=== PATIENT | male | born 1985 | race Caucasian/White ===

== ENCOUNTER 2018-03-04 19:44 | Observation (INO) ==
[2018-03-04] MEDS ORDERED: *HR* FentaNYL (PF) 100 MCG/2 ML VIAL IVP ONE ×3 (19:48→23:37)
[2018-03-04] MEDS ORDERED: *HR* OxyCODONE/APAP 5/325 TABLET PO ONE (19:48)
[2018-03-04] MEDS ORDERED: Tdap (Boostrix) Vaccine 0.5 ML SYRINGE IM ONE (19:49)
--- NOTE | 2018-03-04 20:23 | Emergency Department Note ---
Disposition Clinical Impression: Laceration of right lower leg Qualifiers: Encounter type: initial encounter Qualified Code(s): S81.811A - Laceration without foreign body, right lower leg, initial encounter Disposition: Home, Self-Care Condition: Good General Adult HPI - General Chief complaint: ED Wound/Laceration Stated complaint: finger/ankle injury Time Seen by Provider: 03/04/18 19:45 Source: patient, EMS Limitations: no limitations Nursing Notes Reviewed: Yes Vital Signs Reviewed: Yes - History of Present Illness HPI Narrative: This is a 32 year-old male with history of Suboxone use who presented via EMS a leg injury. 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 He dropped the tool, lacerating his right anterior sales. EMS controlled bleeding with direct pressure. They gave Versed 10 mg en route for pain and anxiety; they are out of analgesics. Patient presents with pain at the laceration site. He was able to ambulate after the injury. This is an apparent isolated injury. 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 Location: lower extremity Radiation: non-radiation Pain Severity: severe Pain Scale: 10 Quality: sharp Consistency: constant Improves with: nothing Worsens with: movement Associated symptoms: Reports: denies other symptoms - Related Data Home Medications Medication Instructions Recorded Confirmed Suboxone 2 mg-0.5 mg Sl Film 02/08/16 Previous Rx's Medication Instructions Recorded Mupirocin [Bactroban Oint] 1 appl TP BID #1 tube 02/08/16 cephALEXin [Keflex] 500 mg PO QID #40 capsule 02/08/16 Allergies Allergy/AdvReac Type Severity Reaction Status Date / Time No Known Allergies Allergy Verified 02/08/16 17:02 All systems ED: reviewed and negative except as stated. Integumentary: Reports: as per HPI Neurological: Denies: weakness, numbness, abnormal gait Past Medical History - Past Medical History Medical history: Reports: non-contributory Psychiatric history: Reports: anxiety - Social History Smoking Status: Current every day smoker Smokeless Tobacco Status: No Alcohol use: Reports: unknown Drug use: Reports: other Physical Exam - General Limitations: no limitations General appearance: alert, anxious - Head Head exam: atraumatic, normocephalic - Expanded Lower Extremity Exam Knee exam: Present: normal inspection, full ROM. Absent: tenderness, swelling Lower leg exam: Present: tenderness, laceration (6 cm laceration tranversely through right anteiror mid-sales, through fascia) Ankle exam: Present: normal inspection, full ROM. Absent: tenderness, swelling Foot/toe exam: Present: normal inspection, full ROM. Absent: tenderness, swelling, laceration, deformity Neurovascular/Tendon exam: Present: normal capillary refill, normal 2-point discrimination, normal fine/light touch, significant pain with passive ROM of distal joint, other (dorsiflexion and inversion of the foot, extension of all toes intact). Absent: motor deficit, sensory deficit, tendon deficit, foot drop Gait: antalgic - Neurological Exam Neurological exam: Present: alert, oriented X3. Absent: motor sensory deficit Course - Reevaluation(s) Reevaluation #1: Patient's nurse irrigated and dressed the wound. Patient has received multiple doses of analgesics, unfortunately, with only partial relief of pain. Time: 23:30 - Consultations Consultation #1: Dr. Donahue discussed the case with Dr. Yancey, who elected to admit patient and repair the laceration in the OR. Time: 23:30 Vital Signs Temperature 98.4 F 03/04/18 19:45 Pulse Rate 96 03/04/18 19:45 Respiratory Rate 22 03/04/18 19:45 Blood Pressure 136/98 03/04/18 19:45 O2 Sat by Pulse Oximetry 98 03/04/18 19:45 Temperature 98.8 F 03/05/18 00:44 Pulse Rate 69 03/05/18 00:44 Respiratory Rate 15 03/05/18 00:44 Blood Pressure 113/61 03/05/18 00:44 O2 Sat by Pulse Oximetry 94 03/05/18 00:44 Oxygen Delivery Oxygen Delivery Nasal Cannula Medical Decision Making - Lab Data Result diagrams: 03/05/18 00:52 - Radiology Data Radiology results reviewed: Yes I reviewed the patient's radiology results. XR/XR tibia fibula RT IMPRESSION: Anterior soft tissue injury/laceration with no evidence of an acute fracture or radiopaque foreign body.
[2018-03-04] MEDS ORDERED: ceFAZolin 2,000 MG in Water for inj. (sterile) 20 ML IVP ONE (20:47)
[2018-03-04] MEDS ORDERED: Ketamine *HR* 12 MG in 0.9 % Sodium Chloride 100 ML IVPB ONE (21:12)
[2018-03-04] MEDS ORDERED: Lidocaine/EPI 1:100k 1% 30 ML VIAL INFILT ONE (22:44)
[2018-03-04] MEDS ORDERED: Acetaminophen 325 MG TABLET PO PRN (23:17)
[2018-03-04] MEDS ORDERED: Naloxone 0.4 MG/ML INJ IVP PRN (23:17)
[2018-03-04] MEDS ORDERED: *HR* HYDROcodone/Acet 5/325 mg TABLET PO PRN (23:17)
[2018-03-04] MEDS ORDERED: *HR* OxyCODONE Immed Rel 5 MG TABLET PO PRN (23:17)
[2018-03-04] MEDS ORDERED: Ringers Solution, Lactated 1,000 ML IVC SCH (23:30)
[2018-03-04] MEDS ORDERED: ceFAZolin 2,000 MG in Water for inj. (sterile) 20 ML IVP SCH (23:45)
[2018-03-05 01:01] LABS: Hematocrit 37.4 % (37.5-50.1); Hemoglobin 12.8 g/dL (12.9-16.9); Mean Corpuscular HGB Conc 34.2 g/dL (31.6-35.5); Mean Corpuscular Hemoglobin 29.8 pg (28.0-33.3); Mean Corpuscular Volume 87.2 fL (83.0-100.0); Platelet Count 206 K/mcL (140-400); Red Blood Count 4.29 M/mcL (4.19-5.50); Red Cell Distribution Width 13.5 % (11.5-14.5)
[2018-03-05] MEDS ORDERED: Naloxone 0.4 MG/ML INJ IVP PRN ×2 (01:13→09:40)
[2018-03-05] MEDS ORDERED: *HR* OxyCODONE Immed Rel 5 MG TABLET PO PRN ×2 (01:13→09:40)
[2018-03-05] MEDS ORDERED: *HR* HYDROcodone/Acet 5/325 mg TABLET PO PRN ×2 (01:13→09:40)
[2018-03-05] MEDS ORDERED: Ringers Solution, Lactated 1,000 ML IVC SCH ×4 (01:13→09:40)
[2018-03-05] MEDS ORDERED: Acetaminophen 325 MG TABLET PO PRN ×2 (01:13→09:40)
[2018-03-05 02:23] LABS: BUN/Creatinine Ratio 13 (6-26); Blood Urea Nitrogen 12 mg/dL (6-20); Calcium 8.9 mg/dL (8.6-10.3); Carbon Dioxide 27 mEq/L (23-29); Chloride 108 mEq/L (98-107); Glucose 101 mg/dL (70-105); Osmolality,Calculated 290 (280-300); Potassium 4.3 mEq/L (3.5-5.1); Sodium 140 mEq/L (136-145); eGFR For African Americans > 60 (> 60); eGFR For Non-African Americans > 60 (> 60)
--- NOTE | 2018-03-05 06:08 | Orthopedic History & Physical ---
Date of Encounter: 03/05/18 Time of Encounter: 06:05 Assessment and Plan (1) Laceration of right lower leg Current visit: Yes Status: Acute I did discuss the diagnosis in detail with the patient. He has a right leg laceration as described. He is neurovascularly intact and therefore the wound is likely just superficial. Given his pain level he will not tolerate bedside closure. We will plan on operative debridement, irrigation, and primary wound closure in the operating room. The risks discussed included but were not limited to stiffness, bleeding, infection, blood clots, damage to neurovascular structures, tendons, ligaments, and bone. Also discussed was the risk of continued symptoms and possible need for further procedures. I did discuss the anesthesia risks including stroke, heart attack, and . I did discuss the reasonable, foreseeable postoperative course with the patient. He did wish to proceed and consent was obtained. Qualifiers: Encounter type: initial encounter Qualified Code(s): S81.811A - Laceration without foreign body, right lower leg, initial encounter History of Present Illness HPI: Mr. Dahl is a 32 year old male who sustained an injury to his right leg yesterday while at work. It was caused by an angled hand grinder. A caused a transverse laceration to the anterior sales region, lateral to the tibial crest. He was seen in the emergency department where the emergency department physician was concerned about being able to close it in the OR given the patient 's pain level. He was therefore admitted for operative washout and closure. The patient complains of significant isolated achy and sharp pain to the wound on the right leg. No feelings of illness. He denies any numbness, tingling, or any other associated signs or symptoms or modifying factors. I dressing was placed yesterday on the wound however the patient took it off. Past Med Surg Social Fam HX - Past Medical History Medical history: non-contributory Psychiatric history: anxiety - Past Surgical History Surgical History: no surgical history - Social History Smoking Status: Current every day smoker Packs per day: 2 Smokeless Tobacco Status: No Alcohol use: unknown Drug use: other Medications and Allergies Mupirocin [Bactroban Oint] 1 appl TP BID #1 tube 02/08/16 [Rx] Suboxone 2 mg-0.5 mg Sl Film 02/08/16 [History] cephALEXin [Keflex] 500 mg PO QID #40 capsule 02/08/16 [Rx] 3 Allergy/AdvReac Type Severity Reaction Status Date / Time No Known Allergies Allergy Verified 02/08/16 17:02 All Systems Reviewed: The remainder of the systems were reviewed and are negative Physical Exam - Constitutional Vitals: Temp Pulse Resp BP Pulse Ox 98.8 F 69 15 113/61 94 03/05/18 00:44 03/05/18 00:44 03/05/18 00:44 03/05/18 00:44 03/05/18 00:44 Constitutional -Vitals reviewed -The patient is well developed and well nourished. -Mood is pleasant. -The patient is well groomed. Psychiatric -The patient is fully alert and oriented x 3. Respiratory: -Respiratory effort normal Abdomen: -Soft abdomen -Non tender -Non distended: Left upper extremity: -No deformities. The overlying skin is intact. No obvious signs of acute trauma. -No tenderness to palpation throughout. -No significant pain with passive motion of the shoulder, elbow, wrist, and fingers within the limits of the bed. -Able to make an "OK" sign, cross the index and long fingers, and extend the thumb. -Sensation grossly intact to light touch throughout the median, radial, and ulnar distributions. -Radial pulse is present; Fingers have good capillary refill. Right upper extremity: -No deformities. The overlying skin is intact. No obvious signs of acute trauma. -No tenderness to palpation throughout. -No significant pain with passive motion of the shoulder, elbow, wrist, and fingers within the limits of the bed. -Able to make an "OK" sign, cross the index and long fingers, and extend the thumb. -Sensation grossly intact to light touch throughout the median, radial, and ulnar distributions. -Radial pulse is present; Fingers have good capillary refill. Left lower extremity: -No deformities. The overlying skin is intact. No obvious signs of acute trauma. -No tenderness to palpation throughout. -No pain with passive motion of the hip, knee, ankle, and toes within the limits of the bed. -No pain with axial loading of the thigh. -Able to dorsiflex and plantarflex the ankle and toes. -Sensation is grossly intact to light touch throughout the sural, saphenous, superficial peroneal, and deep peroneal distributions. -Toes have good capillary refill. Right lower extremity: -There is a 4 cm transverse laceration at the junction between the middle and distal thirds of the sales region. -I am not able to explore deeper given his pain -All compartments are soft and compressible. -No pain with passive motion of the hip, knee, ankle, and toes within the limits of the bed. -No pain with axial loading of the thigh. -Able to dorsiflex and plantarflex the ankle and toes. -Sensation is grossly intact to light touch throughout the sural, saphenous, superficial peroneal, and deep peroneal distributions. -Toes have good capillary refill. Diagnostic Imaging: I did personally review and interpret x-rays of the right tibia show no apparent fractures though there is a shadow on the anterior tibial region which could be an injury from the hand grinder. Results - Labs Result Diagrams: 03/05/18 00:52 03/05/18 00:52 Labs: Abnormal lab results WBC 12.3 K/mcL (4.3-11.1) H 03/05/18 00:52 Hgb 12.8 g/dL (12.9-16.9) L 03/05/18 00:52 Hct 37.4 % (37.5-50.1) L 03/05/18 00:52 Chloride 108 mEq/L (98-107) H 03/05/18 00:52 H & H 03/05/18 Range/Units 00:52 Hgb 12.8 L (12.9-16.9) g/dL Hct 37.4 L (37.5-50.1) % All other labs normal.
--- NOTE | 2018-03-05 06:21 | Anesthesia Evaluation PreOp ---
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 HX Other Medical History: Denies Any Significant HX Anesthesia History: No Prior Anesthetic Complications Alcohol Use: unknown Drug use: prescription drug abuse (on suboxone) Medications and Allergies Mupirocin [Bactroban Oint] 1 appl TP BID #1 tube 02/08/16 [Rx] Suboxone 2 mg-0.5 mg Sl Film 02/08/16 [History] cephALEXin [Keflex] 500 mg PO QID #40 capsule 02/08/16 [Rx] 3 Allergy/AdvReac Type Severity Reaction Status Date / Time No Known Allergies Allergy Verified 02/08/16 17:02 - Meds/Allergy Pre-op Review Medications Reviewed: Yes Allergies Reviewed: Yes Beta Blockers on Current Med List: No Anesthesia Results - Labs 03/05/18 00:52 03/05/18 00:52 Anesthesia Exam O2 Sat Height 1.71 m Height 1.7 m Weight 66.5 kg Weight 62.142 kg O2 Sat by Pulse Oximetry 94 O2 Sat by Pulse Oximetry 99 O2 Sat by Pulse Oximetry 98 Vital Signs Temp Pulse Resp BP Pulse Ox 98.4 F 96 22 136/98 98 03/04/18 19:45 03/04/18 19:45 03/04/18 19:45 03/04/18 19:45 03/04/18 19:45 NPO (# of Hours): > 8 hrs Pain Scale: 0 Pain Scale Used: Numeric (1 - 10) - HEENT Pupil (Motor): Pupils equal, EOMI Mallampati: III Teeth: Normal Oral Opening: Greater than 3 - 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
[2018-03-05] MEDS ORDERED: *HR* Propofol 200 MG/20 ML VIAL IVP ONE (06:26)
[2018-03-05] MEDS ORDERED: Lidocaine -MPF 2% 2 ML VIAL ONE (06:32)
[2018-03-05] MEDS ORDERED: Ondansetron 4 MG/2 ML VIAL ONE (06:32)
[2018-03-05] MEDS ORDERED: *HR* Succinylcholine 200 MG/10 ML VIAL IVP ONE (06:32)
[2018-03-05] MEDS ORDERED: Bupivacaine/EPI 1:200k 0.5%PF 10 ML VIAL ONE (06:40)
[2018-03-05] MEDS ORDERED: Albuterol 2.5 MG/3 ML NEBULIZER ONE (06:41)
[2018-03-05] MEDS ORDERED: CeFAZolin Syringe 2,000MG/20 ML SYR IVPB ONE ×2 (06:47→09:40)
[2018-03-05] MEDS ORDERED: Albuterol 2.5 MG/3 ML NEBULIZER IH ONE ×2 (06:50→09:40)
[2018-03-05] MEDS ORDERED: *HR* FentaNYL (PF) 100 MCG/2 ML VIAL ONE (06:59)
[2018-03-05] MEDS ORDERED: CeFAZolin Syr 2,000MG/20 ML 2,000 MG/20 ML SYRINGE IVPB ONE (07:00)
[2018-03-05] MEDS ORDERED: Acetaminophen IV 1,000 MG/100 ML INFUS..BTL ONE (07:42)
[2018-03-05] MEDS ORDERED: *HR* Meperidine 25 MG/ML SYRINGE ONE (07:48)
[2018-03-05] MEDS: *HR* HYDROmorphone (PF) 1 MG/ML SYRINGE IVP PRN ×3 (08:30→08:41)
[2018-03-05] MEDS ORDERED: *HR* Promethazine 25 MG/ML VIAL ONE (08:34)
--- NOTE | 2018-03-05 08:34 | Orthopedic Operative Note ---
Date of procedure: 03/05/18 Procedure: OPERATIVE REPORT DATE OF PROCEDURE: 03/05/2018 SURGEON: Nito Yancey MD SALES OPERATIONS LEAD(S): There are no assistants PREOPERATIVE DIAGNOSIS: Right leg laceration POSTOPERATIVE DIAGNOSIS: Right leg laceration with complete tibialis anterior laceration and near complete extensor digitorum longus laceration PROCEDURE: Debridement and irrigation of the right leg with repair of the tibialis anterior tendon and extensor digitorum longus tendon ANESTHESIA: Gen. anesthesia PREOPERATIVE ANTIBIOTICS: To grams of Ancef ESTIMATED BLOOD LOSS: 1 milliliters TOURNIQUET TIME: 26 minutes at 300 mmHg LOCAL INJECTION: 0.5% bupivacaine with 1:200,000 epinephrine; 15 mL used in total PREOPERATIVE NOTE AND INDICATIONS: This patient is a 32-year-old male comes in for evaluation of his right leg. He sustained a laceration with an angled grinder brake lining. Recommendation was for exploration with debridement and irrigation and repair of structures as needed. The surgical plan was discussed with the patient. The risks, benefits, alternatives, and potential complications of this procedure were discussed with the patient including injury to veins, arteries, nerves, tendons, ligaments, and bone. Also discussed were the risks of infection, bleeding, pain, blood clots, the possible need for a blood transfusion, the possible need for further procedures, heart attack, stroke, and . Additional risks include infection. All of this was explained in simple terms, and the patient verbalized understanding and wished to proceed. Consent was given to proceed with surgery. PROCEDURE: The patient was seen in the preoperative holding area where the identify and the consent were confirmed. The right leg was marked. Final questions were answered. The patient was brought back to the operating room and placed supine on the operating room table. A huddle was performed with the patient and all vital surgical team members confirming patient identity, the correct procedure, and the correct operative site. Gen. anesthesia was administered. The right lower extremity was prepped and draped in the usual sterile fashion. A surgical time out was performed immediately preceding the incision with all personnel in the operating room to confirm patient identity, the correct operative site and extremity, correct radiographic studies, availability of appropriate surgical equipment, and agreement on the planned procedure. The limb was exsanguinated and tourniquet was inflated. The wound was explored and there is no foreign material. There is noted to be tendon lacerations and therefore the wound was extended proximally and distally on either side. Full- thickness flaps were elevated and the fascia was opened longitudinally. The tibialis anterior tendon had been completely lacerated and the extensor digitorum longus tendon was nearly completely lacerated, about 80%. The extensor pollicis longus was completely intact. The wound was copiously irrigated with 3 L of saline under pulse lavage. The extensor digitorum longus tendon was repaired with 3-0 FiberWire stitches 2 in modified Gonzalez fashion creating 4 core strands. The tibialis anterior was repaired with 3-0 FiberWire stitches 4 in modified Gonzalez fashion creating a core strands. The wound was again copiously irrigated and closed with 3-0 Vicryl stitches followed by sandro. A sterile dressing followed by short leg splint was applied keeping the foot in plantigrade position. The instrument, sponge, and needle counts were correct after wound closure. POST OPERATIVE PLAN: Weight Bearing: Nonweightbearing to the right lower extremity. DVT Prophylaxis: Ambulation Activity: Avoid aggressive activities with right upper extremity. Wound Care: Keep the dressing and splint clean, dry, and intact. Pain Control: [place] Follow Up: Follow-up in 2 weeks for staple removal and placement in a short leg cast. I will continue the cast for a total of 6 weeks followed by motion exercises and therapy. Was there an restaurant assistant present: No Estimated blood loss (cc): 1
[2018-03-05] MEDS: *HR* Promethazine 25 MG/ML VIAL IVP PRN ×2 (08:36→08:45)
--- NOTE | 2018-03-05 09:12 | Anesthesia Evaluation Post Op ---
Date of Encounter: 03/05/18 Time of Encounter: 09:10 Notes: Patient's vital signs have been reviewed. Patient is stable postoperatively and has adequately recovered from anesthesia. Patient is determined to have stable airway patency and respiratory function including respiratory rate and oxygen saturation. Patient has a stable heart rate, blood pressure and adequate hydration. Patients mental status is acceptable. Patients temperature is appropriate. Pain and nausea are adequately controlled. - Discharge PostOp Status: Transfer Patient to floor
--- NOTE | 2018-03-05 09:55 | Discharge Summary ---
Date of Encounter: 03/05/18 Time of Encounter: 09:52 - Discharge Diagnosis (1) Laceration of right lower leg Priority: Primary Status: Acute Qualifiers: Encounter type: initial encounter Qualified Code(s): S81.811A - Laceration without foreign body, right lower leg, initial encounter - Hospital Course Hospital course: Mr. Dahl is a 32 year old male - Time Spent with Patient Total time spent providing and/or coordinating discharge services: - Discharge Medications Prescriptions: cephALEXin [Keflex] 500 mg PO QID #40 capsule HYDROcodone/Acet 5/325 mg [[place] 5-325 mg] 1 tab PO Q6HR PRN 3 Days #12 tablet PRN Reason: Moderate Pain Home Medications: Mupirocin [Bactroban Oint] 1 appl TP BID #1 tube 02/08/16 [Rx] Suboxone 2 mg-0.5 mg Sl Film 02/08/16 [History] HYDROcodone/Acet 5/325 mg [[place] 5-325 mg] 1 tab PO Q6HR PRN 3 Days #12 tablet 03/05/18 [Rx] cephALEXin [Keflex] 500 mg PO QID #40 capsule 03/05/18 [Rx] Allergies/Adverse Reactions: 3 Allergy/AdvReac Type Severity Reaction Status Date / Time No Known Allergies Allergy Verified 02/08/16 17:02 Date of admission: 03/04/18 23:44 Primary care physician: PCP NONE Labs on day of discharge: Labs from last 24 hours 03/05/18 03/05/18 00:52 00:52 WBC 12.3 H RBC 4.29 Hgb 12.8 L Hct 37.4 L MCV 87.2 MCH 29.8 MCHC 34.2 RDW 13.5 Plt Count 206 MPV 10.0 Sodium 140 Potassium 4.3 Chloride 108 H Carbon Dioxide 27 BUN 12 Creatinine 0.89 Est GFR ( Amer) > 60 Est GFR (Non-Af Amer) > 60 BUN/Creatinine Ratio 13 Glucose 101 Calculated Osmolality 290 Calcium 8.9 - Patient Status Disposition: Home, Self-Care Condition: Good - Discharge Instructions Follow Up With: NONE,PCP [Primary Care Provider] -
--- NOTE | 2018-03-05 10:06 | Discharge Summary ---
Date of Encounter: 03/05/18 Time of Encounter: 10:02 - Discharge Diagnosis (1) Laceration of right lower leg Priority: Primary Status: Acute Comments: DISCHARGE INSTRUCTIONS Dr. Yancey DISCHARGE DIAGNOSIS/PROCEDURE Right leg exploration with tendon repairs ACTIVITY: Avoid aggressive activities Elevate the right lower extremity often to control pain and swelling Do not put any weight down on the right lower extremities. Use her crutches as instructed. WOUND CARE: Do not take the dressing down and do not get the splint wet or dirty. Do not take splint off. DRIVING: No driving for the next 6 weeks DIET: Begin with clear liquids, and then increase your diet as you feel comfortable. MEDICATIONS: Pain: [place] Your prescribed pain medication contains Tylenol. You must be careful not to exceed 4,000 mg (4 g) of Tylenol (or generic equivalent), from all sources, within a single 24-hour period. Gradually wean to Tylenol (or generic equivalent) for pain. Over the counter ibuprofen can be taken as directed in addition to your prescribed pain medication unless otherwise stated by your doctor. DO NOT TAKE IBUPROFEN IF YOU HAVE A HISTORY OF STOMACH ULCERS OR ARE TAKING BLOOD THINNERS LIKE COUMADIN OR PLAVIX. FOLLOW-UP Follow-up with Dr. Yancey at the office 2 weeks from the surgery date for a post operative evaluation. Call the office at [phone] to schedule or confirm your appointment. WHEN TO CALL THE DOCTOR OR WHEN TO SEEK CARE BEFORE YOUR APPOINTMENT 1. Excess swelling or increased numbness not made better by elevating the hand and moving the fingers. 2. Uncontrolled pain. 3. A color change in your hand or fingers. 4. Worsening redness or drainage. 5. Fevers over 100.5 degrees F or 38.1 degrees C. 6. Any symptoms that bring concern to you. Qualifiers: Encounter type: initial encounter Qualified Code(s): S81.811A - Laceration without foreign body, right lower leg, initial encounter - Hospital Course Hospital course: Mr. Dahl is a 32 year old male - Time Spent with Patient Total time spent providing and/or coordinating discharge services: - Discharge Medications Prescriptions: cephALEXin [Keflex] 500 mg PO QID #40 capsule HYDROcodone/Acet 5/325 mg [[place] 5-325 mg] 1 tab PO Q6HR PRN 3 Days #12 tablet PRN Reason: Moderate Pain Home Medications: Mupirocin [Bactroban Oint] 1 appl TP BID #1 tube 02/08/16 [Rx] Suboxone 2 mg-0.5 mg Sl Film 02/08/16 [History] HYDROcodone/Acet 5/325 mg [[place] 5-325 mg] 1 tab PO Q6HR PRN 3 Days #12 tablet 03/05/18 [Rx] cephALEXin [Keflex] 500 mg PO QID #40 capsule 03/05/18 [Rx] Allergies/Adverse Reactions: 3 Allergy/AdvReac Type Severity Reaction Status Date / Time No Known Allergies Allergy Verified 02/08/16 17:02 Date of admission: 03/04/18 23:44 Primary care physician: PCP NONE Labs on day of discharge: Labs from last 24 hours 03/05/18 03/05/18 00:52 00:52 WBC 12.3 H RBC 4.29 Hgb 12.8 L Hct 37.4 L MCV 87.2 MCH 29.8 MCHC 34.2 RDW 13.5 Plt Count 206 MPV 10.0 Sodium 140 Potassium 4.3 Chloride 108 H Carbon Dioxide 27 BUN 12 Creatinine 0.89 Est GFR ( Amer) > 60 Est GFR (Non-Af Amer) > 60 BUN/Creatinine Ratio 13 Glucose 101 Calculated Osmolality 290 Calcium 8.9 - Patient Status Disposition: Home, Self-Care Condition: Good - Discharge Instructions Follow Up With: NONE,PCP [Primary Care Provider] -
[2018-03-05 11:52] VITALS: BP 102/53
--- NOTE | 2018-03-05 14:15 | Orthopedics Progress Note ---
Date of Encounter: 03/05/18 Time of Encounter: 10:00 - Assessment and Plan (1) Laceration of right lower leg Status: Acute Qualifiers: Encounter type: initial encounter Qualified Code(s): S81.811A - Laceration without foreign body, right lower leg, initial encounter Subjective Interval history: S: Patient was seen before discharge. Pain controlled O: AFVSS Right leg in short leg splint. Toes are sensate and well perfused. A: Post right leg wound closure after repairs of the tibialis anterior and extensor digitorum longus P: NWB RLE Taught crutches Will see early next week for wound check Until then, keep dressing clean, dry, intact Keflex called into his pharmacy (10 day supply) Objective Vital signs: Vital Signs Temp Pulse Resp BP Pulse Ox 03/05/18 11:51 98.2 F 62 16 102/53 97 03/05/18 11:02 97.6 F 67 16 105/54 94 03/05/18 10:28 98.0 F 65 16 95/59 94 03/05/18 10:10 97.7 F 70 16 118/58 94 03/05/18 09:59 93 03/05/18 09:03 74 12 106/65 93 03/05/18 08:53 73 12 111/68 92 03/05/18 08:43 98.3 F 80 14 104/58 93 03/05/18 08:33 71 16 118/56 96 03/05/18 08:23 83 16 110/60 96 03/05/18 08:13 81 16 113/74 97 03/05/18 08:03 98.2 F 87 16 116/69 98 03/05/18 06:52 15 113/61 94 03/05/18 00:44 98.8 F 69 15 113/61 94 03/04/18 23:52 85 98/58 Intake and Output 03/04/18 03/05/18 03/05/18 23:59 07:59 15:59 Intake Total 120 / 120 Output Total 250 / 250 601 / 601 Balance -130 / -130 -601 / -601 Intake: IV Fluids 120 / 120 Ancef Premix 2,000 MG/100 ML 2, 100 / 100 000 mg In 100 ml @ 200 mls/hr IVPB Q8HR [facility] Rx#:[id number] Ancef Syringe 2,000 MG/20 ML 2, 20 / 20 000 mg In 20 ml @ 200 mls/hr IVPB PREOP ONE Rx#:[id number] Output: Urine 250 / 250 600 / 600 Estimated Blood Loss Other: Weight 66.5 kg Patient Weight 03/05/18 23:59 Weight 66.5 kg - Labs CBC & BMP: 03/05/18 00:52 03/05/18 00:52 Labs: Abnormal lab results WBC 12.3 K/mcL (4.3-11.1) H 03/05/18 00:52 Hgb 12.8 g/dL (12.9-16.9) L 03/05/18 00:52 Hct 37.4 % (37.5-50.1) L 03/05/18 00:52 Chloride 108 mEq/L (98-107) H 03/05/18 00:52 Consult Discharge Plan - Plan Additional Instructions: -return to work 6 weeks post op - remain non weight bearing in right lower extremity. -use crutches -keep dressing clean dry and intact. Referrals: NONE,PCP [Primary Care Provider] - Prescriptions: cephALEXin [Keflex] 500 mg PO QID #40 capsule HYDROcodone/Acet 5/325 mg [[place] 5-325 mg] 1 tab PO Q6HR PRN 3 Days #12 tablet PRN Reason: Moderate Pain
[2018-03-05] MEDS ORDERED: CeFAZolin Pre 2,000 MG/100 ML 2,000 MG/100 ML BAG IVPB SCH ×2 (15:00)
[2018-03-06] MEDS ORDERED: *HR* Enoxaparin 40 MG/0.4 ML SYRINGE SQ SCH (06:00)
== END 2018-03-05 13:00 | disposition home or self-care (01) ==
LOC: EMEROO 19:44 → 3NENU 19:44
PROVIDERS: ADMIT Orthopaedic Surgery Hand Surgery; ATTEND Orthopaedic Surgery Hand Surgery

== ENCOUNTER 2020-01-25 14:16 | Observation (INO) ==
[2020-01-25] MEDS ORDERED: Isovue-370 500 ML BOTTLE IVP ONE (14:26)
[2020-01-25 14:41] LABS: Basophils % 0.2 %; Eosinophils % 0.3 %; Hematocrit 47.1 % (37.5-50.1); Immature Granulocytes % 0.6 % (0-4); Lymphocytes # 3.1 K/mcL (0.6-4.6); Lymphocytes % 31.2 %; Mean Corpuscular Hemoglobin 29.8 pg (28.0-33.3); Mean Corpuscular Volume 87.7 fL (83.0-100.0); Mean Platelet Volume 9.5 fL (9.4-12.4); Monocytes # 0.6 K/mcL (0.0-1.3); Neutrophils # 6.1 K/mcL (1.6-8.9); Platelet Count 281 K/mcL (140-400); Red Blood Count 5.37 M/mcL (4.19-5.50); Red Cell Distribution Width 13.4 % (11.5-14.5); Segmented Neutrophils % 61.7 %; White Blood Count 9.9 K/mcL (4.3-11.1)
[2020-01-25 14:54] LABS: BUN/Creatinine Ratio 18 (6-26); Blood Urea Nitrogen 18 mg/dL (6-20); Calcium 10.4 mg/dL (8.6-10.3); Carbon Dioxide 16 mEq/L (23-29); Chloride 102 mEq/L (98-107); Ethanol < 10 mg/dL (Less than 10); Glucose 161 mg/dL (70-105); Osmolality,Calculated 281 (280-300); Potassium 3.7 mEq/L (3.5-5.1); Sodium 133 mEq/L (136-145); eGFR For African Americans > 60 (> 60); eGFR For Non-African Americans > 60 (> 60)
[2020-01-25 15:57] LABS: Amphetamine Screen,Urine Negative ng/mL (Cutoff=1000); Barbiturate Screen,Urine Negative ng/mL (Cutoff=200); Benzodiazepines Screen,Urine Positive ng/mL (Cutoff=200); Cannabinoid Screen,Urine Negative ng/mL (Cutoff = 50); Cocaine Screen,Urine Negative ng/mL (Cutoff= 300); Opiate Screen,Urine Negative ng/mL (Cutoff=300); Phencyclidine Screen,Urine Negative ng/mL (Cutoff=25)
[2020-01-25] MEDS ORDERED: Naloxone 0.4 MG/ML INJ IVP PRN (18:00)
[2020-01-25] MEDS ORDERED: *HR* LORazepam 2 MG/ML VIAL IVP PRN ×3 (18:00)
[2020-01-25] MEDS: Nicotine 21 MG PATCH.TD24 TD SCH (18:25)
[2020-01-25] MEDS ORDERED: Nicotine 2 MG GUM BC PRN (19:04)
[2020-01-25 19:32] LABS: Alanine Aminotransferase 56 Units/L (7-52); Albumin 5.1 g/dL (3.5-5.7); Albumin/Globulin Ratio 1.6 (1.1-2.2); Alkaline Phosphatase 93 Units/L (34-104); Aspartate Amino Transferase 39 Units/L (13-39); Bilirubin,Indirect 0.5 mg/dL (0.0-1.0); Bilirubin,Total 0.5 mg/dL (0.3-1.0); Creatine Kinase 110 Units/L (30-223); Globulin 3.1 g/dL (2.4-3.5); Magnesium 2.6 mg/dL (1.6-2.6); Total Protein 8.2 g/dL (6.4-8.9)
[2020-01-26 05:36] LABS: BUN/Creatinine Ratio 19 (6-26); Blood Urea Nitrogen 18 mg/dL (6-20); Calcium 10.2 mg/dL (8.6-10.3); Carbon Dioxide 27 mEq/L (23-29); Chloride 101 mEq/L (98-107); Glucose 122 mg/dL (70-105); Osmolality,Calculated 289 (280-300); Potassium 3.4 mEq/L (3.5-5.1); Sodium 138 mEq/L (136-145); eGFR For African Americans > 60 (> 60); eGFR For Non-African Americans > 60 (> 60)
[2020-01-26] MEDS: Nicotine 21 MG PATCH.TD24 TD SCH (08:33)
[2020-01-26] MEDS ORDERED: clonazePAM 1 MG TABLET PO SCH (11:00)
[2020-01-26] MEDS ORDERED: Gadolinium Contrast Agent (WT Based) IV PRN (11:10)
[2020-01-26] MEDS ORDERED: clonazePAM 1 MG TABLET PO ONE (11:16)
[2020-01-26] MEDS: clonazePAM 1 MG TABLET PO SCH (21:14)
[2020-01-27 06:46] VITALS: BP 108/61
[2020-01-27] MEDS: clonazePAM 1 MG TABLET PO SCH (09:19)
[2020-01-27] MEDS: Nicotine 21 MG PATCH.TD24 TD SCH (09:19)
== END 2020-01-27 10:31 | disposition home or self-care (01) ==
LOC: 3BNU 14:16 → EMEROOARM 14:16 → SUATTDRO 16:50 → 3BNU 17:23
PROVIDERS: ADMIT Family Medicine; ATTEND Student in an Organized Health Care Education/Training Program